=== PATIENT | male | born 1985 | race Two or more races ===

== ENCOUNTER 2018-12-09 00:58 | Emergency (ER) | payer OTHER ==
[~2018-12-09] VITALS: Ht 170.2 cm; Wt 83.9 kg
[2018-12-09] MEDS ORDERED: KETO10TA2 PO (01:58)
[2018-12-09] MEDS ORDERED: ORPHENADRINE C100 MG PO (01:58)
== END 2018-12-09 02:18 | disposition home or self-care (01) ==
LOC: ER 00:58
DX: M54.5 Low back pain (principal)

== ENCOUNTER 2022-07-23 14:59 | Emergency (ER) | payer OTHER ==
[~2022-07-23] VITALS: Ht 170.2 cm; Wt 81.6 kg
[~2022-07-23 14:59] MED LIST: KETO10TA2 PO; ORPHENADRINE C100 MG PO
[2022-07-23] MEDS ORDERED: MEDROLPACK PO (16:31)
[2022-07-23] MEDS ORDERED: METAXALONE800 MG PO (16:31)
[2022-07-23] MEDS ORDERED: CELEBREX200MG PO (16:31)
== END 2022-07-23 16:43 | disposition home or self-care (01) ==
LOC: ER 14:59
DX: M54.89 Other dorsalgia (principal)

== ENCOUNTER → 2024-07-13 | Emergency (ER) | payer OTHER ==
[~2024-07-13] VITALS: Ht 170.2 cm; Wt 88.5 kg
[~2024-07-13] MED LIST changes: +CELEBREX200MG PO; +MEDROLPACK PO; +METAXALONE800 MG PO
== END | disposition left against medical advice (07) ==
LOC: ER 08:14
DX: M79.602 Pain in left arm (principal); M79.601 Pain in right arm

== ENCOUNTER → 2024-07-18 | Emergency (ER) | payer OTHER | END | disposition left against medical advice (07) | LOC: ER 10:41 | DX: Z53.21 Procedure and treatment not carried out due to patient leaving prior to being seen by health care provider (principal) ==

== ENCOUNTER 2024-12-20 10:19 | Outpatient (CLI) | payer OTHER | END 2024-12-20 10:31 | disposition home or self-care (01) | LOC: RAD 10:19 | DX: M79.642 Pain in left hand (principal); M79.641 Pain in right hand ==